=== PATIENT | female | born 1980 | race Hispanic/Latino ===

== ENCOUNTER 2021-03-17 20:46 | Inpatient (IN) | payer SELFPAY ==
[~2021-03-17] VITALS: Ht 162.6 cm; Wt 87.2 kg
[2021-03-17] MEDS ORDERED: ONDANSETRON 4MG INJ IVP ONE (21:15)
[2021-03-17] MEDS ORDERED: KETOROLAC 30MG VIAL (30MG/ML) IVP ONE (21:15)
[2021-03-17] MEDS ORDERED: NACL 0.9% 1000ML 1,000 ML IV ONE (21:15)
[2021-03-17 21:25] LABS: BASOPHILS % (AUTO) 0.5 % (0.0-5.0); EOSINOPHILS % (AUTO) 0.5 % (0.0-8.0); HEMATOCRIT 30.7 % (36-48); MEAN CORPUSCULAR HEMOGLOBIN 21.9 pg (27.0-33.0); MEAN CORPUSCULAR HGB CONC 28.7 g/dL (32.0-36.0); MEAN CORPUSCULAR VOLUME 76.4 fL (79-99); MONOCYTES % (AUTO) 6.1 % (3.0-13.0); NEUTROPHILS % (AUTO) 85.3 % (40.0-77.0); PLATELET COUNT (AUTO) 366 K/uL (130-400); RED BLOOD CELL COUNT(AUTO) 4.02 MIL/uL (4.00-5.50); RED CELL DISTRIBUTION WIDTH 17.7 % (11.0-15.5); WHITE BLOOD COUNT (AUTO) 11.4 K/uL (4.8-10.8)
[2021-03-17 21:42] LABS: CREATININE 0.8 mg/dL (0.5-1.5); POTASSIUM 3.8 mmol/L (3.5-5.1)
[2021-03-17 21:45] LABS: APPEARANCE,URINE Turbid (CLEAR); BILIRUBIN,URINE Negative (NEGATIVE); COLOR,URINE Yellow (YELLOW); GLUCOSE, URINE (UA) Negative (NEGATIVE); KETONES,URINE Negative (NEGATIVE); LEUKOCYTE ESTERASE ,URINE Large (NEGATIVE); NITRATE,URINE Positive (NEGATIVE); OCCULT BLOOD,URINE Nonhemolyzed Trace (NEGATIVE); PH,URINE 7.5 (5.0-8.0); PROTEIN,URINE Negative (NEGATIVE); UROBILINOGEN,URINE 0.2 mg/dL (0.2-1.0)
[2021-03-17 21:46] LABS: ALBUMIN 3.6 g/dL (3.5-5.0); BILIRUBIN,TOTAL 0.2 mg/dL (0.2-1.0); TOTAL PROTEIN, SERUM 7.5 g/dL (6.0-8.3)
[2021-03-17] MEDS ORDERED: CEFTRIAXONE 1G VIAL IVP STA (21:54)
[2021-03-17 21:57] LABS: AMORPHOUS SEDIMENT,UR Many /LPF (None Seen)
[2021-03-17 21:58] LABS: FINE GRANULAR CASTS,URINE 0-2 /LPF (None Seen)
[2021-03-17 21:59] LABS: BACTERIA,URINE Many /HPF (None Seen); MUCUS,URINE Rare LPF (None Seen); WBC,URINE 51-100 /HPF (0-1)
[2021-03-17] MEDS ORDERED: LACTULOSE 20 GM/30 ML UDCUP PO ONE (22:00)
[2021-03-17 22:01] LABS: HYALINE CASTS, URINE 0-1 /LPF (0-1 /LPF)
[2021-03-17] MEDS ORDERED: LISI10TA24 PO (22:42)
[2021-03-17 22:50] VITALS: BP 149/76
[2021-03-17] MEDS ORDERED: DIPHENHYDRAMINE HCL 25 MG CAPSULE PO PRN (23:45)
[2021-03-17] MEDS ORDERED: APAP-CODEINE 300/30MG TAB PO PRN (23:45)
[2021-03-17] MEDS ORDERED: HYDRALAZINE 20MG/ML VIAL IV PRN (23:45)
[2021-03-17] MEDS ORDERED: LACTULOSE 20 GM/30 ML UDCUP PO PRN (23:45)
[2021-03-17] MEDS ORDERED: MAG/ALUM/SIMETH 30 ML UDCUP PO PRN (23:45)
[2021-03-17] MEDS: CEFTRIAXONE 1G VIAL IV SCH (23:45)
[2021-03-17] MEDS ORDERED: ACETAMINOPHEN 325 MG TAB PO PRN (23:45)
[2021-03-17] MEDS ORDERED: NITROGLYCERIN 0.4 MG SL TAB SL PRN (23:45)
[2021-03-17] MEDS ORDERED: GUAIFENESIN-DM 200/20 MG 10 ML PO PRN (23:45)
[2021-03-18] VITALS (29 sets, daily range): BP systolic 124–166; BP diastolic 75–105
[2021-03-18] MEDS: NACL 0.9% 1000ML 1,000 ML IV SCH ×3 (00:53→21:03)
[2021-03-18 01:14] LABS: RETICULOCYTE % (AUTO) 1.61 % (0.42-2.23)
[2021-03-18] MEDS: MORPHINE 4 MG SYG IV PRN ×2 (01:57→08:29)
[2021-03-18] MEDS: ONDANSETRON 4MG INJ IV PRN ×2 (02:02→08:27)
[2021-03-18 03:25] LABS: % IRON SATURATION 2.9 % (22-44)
[2021-03-18] MEDS: FAMOTIDINE 20MG VIAL IV SCH ×2 (08:28→21:03)
[2021-03-18] MEDS: ENOXAPARIN SODIUM 40 MG/0.4 ML SYRINGE SQ SCH (08:31)
[2021-03-18] MEDS ORDERED: METOPROLOL TARTRATE 1 MG/ML 5ML VIAL IV PRN (11:00)
[2021-03-18] MEDS ORDERED: LIDOCAINE PF 100MG/5ML (2%) SYRINGE 5ML ONE (11:14)
[2021-03-18] MEDS ORDERED: ROCURONIUM 10MG/1ML SYR 10 MG/ML ML ONE (11:16)
[2021-03-18] MEDS ORDERED: MIDAZOLAM HCL 1 MG/ML 2ML VIAL ONE (11:16)
[2021-03-18] MEDS ORDERED: PROPOFOL 10 MG/ML 20ML VIAL IV ONE (11:16)
[2021-03-18] MEDS ORDERED: FENTANYL CITRATE PF 50 MCG/1 ML 2ML VIAL ONE (11:17)
[2021-03-18] MEDS ORDERED: ROPIVACAINE 0.5% 5MG/ML 30ML IJ ONE (11:19)
[2021-03-18] MEDS ORDERED: LIDOCAINE HCL 1% 20 ML VIAL ONE (11:34)
[2021-03-18] MEDS ORDERED: BUPIVACAINE/EPI/PF 0.5% 30ML VIAL IJ ONE (11:35)
[2021-03-18] MEDS ORDERED: LACTATED RINGERS 1000ML 1,000 ML IV ONE (11:42)
[2021-03-18] MEDS ORDERED: CEFAZOLIN SODIUM 1 GM VIAL ONE ×3 (11:45→12:48)
[2021-03-18] MEDS ORDERED: EPHEDRINE SULFATE 50 MG/ML AMPULE ONE (12:43)
[2021-03-18] MEDS ORDERED: ONDANSETRON 4MG INJ ONE (12:45)
[2021-03-18] MEDS ORDERED: MEPERIDINE-PF 25 MG/ML SYG ONE ×3 (12:58→13:46)
[2021-03-18] MEDS ORDERED: LISINOPRIL 10 MG TABLET PO SCH (18:00)
[2021-03-18] MEDS: OXYCODONE/ACETAMIN 5/325MG TAB PO PRN (19:13)
[2021-03-18] MEDS ORDERED: FLU VACC QS2020-21(6MOS UP)/PF 60 MCG/0.5 ML ML IM ONE (19:45)
[2021-03-18] MEDS: CEFTRIAXONE 1G VIAL IV SCH (23:52)
[2021-03-19 00:28] VITALS: BP 141/77
[2021-03-19 04:28] VITALS: BP 133/88
[2021-03-19] MEDS: OXYCODONE/ACETAMIN 5/325MG TAB PO PRN ×2 (04:28→11:00)
[2021-03-19] MEDS: NACL 0.9% 1000ML 1,000 ML IV SCH (05:45)
[2021-03-19 06:35] LABS: HEMATOCRIT 29.2 % (36-48); MEAN CORPUSCULAR HEMOGLOBIN 21.4 pg (27.0-33.0); MEAN CORPUSCULAR HGB CONC 28.4 g/dL (32.0-36.0); MEAN CORPUSCULAR VOLUME 75.5 fL (79-99); RED BLOOD CELL COUNT(AUTO) 3.87 MIL/uL (4.00-5.50); RETICULOCYTE % (AUTO) 1.77 % (0.42-2.23); WHITE BLOOD COUNT (AUTO) 11.5 K/uL (4.8-10.8)
[2021-03-19 06:51] LABS: % IRON SATURATION 9.7 % (22-44)
[2021-03-19] MEDS ORDERED: FLU VACC QS2020-21(6MOS UP)/PF 60 MCG/0.5 ML ML IM SCH (07:00)
[2021-03-19 07:15] LABS: CREATININE 0.7 mg/dL (0.5-1.5); POTASSIUM 3.6 mmol/L (3.5-5.1)
[2021-03-19 07:58] VITALS: BP 128/80
[2021-03-19] MEDS ORDERED: LISINOPRIL 10 MG TABLET PO SCH (09:00)
[2021-03-19] MEDS: ENOXAPARIN SODIUM 40 MG/0.4 ML SYRINGE SQ SCH (09:00)
[2021-03-19] MEDS ORDERED: POLY17PO4 PO (09:24)
[2021-03-19] MEDS ORDERED: TYL3B PO (09:24)
[2021-03-19] MEDS ORDERED: ONDA4TAB4 PO (09:24)
[2021-03-19] MEDS ORDERED: COMPOUND IV MISC 1 EACH IVSOLN MISC PRN (09:30)
[2021-03-19] MEDS ORDERED: CYANOCOBALAMIN (VITAMIN B-12) 1000 MCG/ML 1ML VIAL IM SCH (09:30)
[2021-03-19] MEDS ORDERED: CEFD300C3 PO (09:43)
[2021-03-19] MEDS ORDERED: IRON SUCROSE COMPLEX 300 MG in 0.9% NACL 50ML 50 ML IV SCH (09:45)
[2021-03-19] MEDS: FAMOTIDINE 20MG VIAL IV SCH (09:45)
[2021-03-19 11:42] VITALS: BP 131/82
[2021-03-19 16:00] VITALS: BP 140/93
== END 2021-03-19 17:45 | disposition home or self-care (01) | DRG 354 ==
LOC: EDH 20:46 → EDHIP 20:47 → OBSVTOIN 20:47 → 3DH 03-18 07:37 → 3CH 03-18 09:55
PROVIDERS: ADMIT Internal Medicine; ATTEND Internal Medicine
PROC: 0WUF0JZ Supplement Abdominal Wall with Synthetic Substitute, Open Approach (ICD-10-PCS; principal; 2021-03-18 12:10)
DX: K42.0 Umbilical hernia with obstruction, without gangrene (principal); N39.0 Urinary tract infection, site not specified; Z16.24 Resistance to multiple antibiotics; I10 Essential (primary) hypertension; E66.9 Obesity, unspecified; D64.9 Anemia, unspecified; B96.20 Unspecified Escherichia coli [E. coli] as the cause of diseases classified elsewhere; K57.90 Diverticulosis of intestine, part unspecified, without perforation or abscess without bleeding; Z68.33 Body mass index [BMI] 33.0-33.9, adult; Z98.51 Tubal ligation status; Z90.49 Acquired absence of other specified parts of digestive tract
CPT/HCPCS: 36415; 74176; 80048; 80053; 81001; 82607; 82728; 82746; 83540; 83550; 83690; 84484; 85025; 85027; 85045; 87077; 87088; 87186; 93005; C1781; G0378; J0360; J0690; J0696; J1650; J1756; J1885; J2001; J2175; J2250; J2270; J2405; J2704; J2795; J3010; J3420; J3490; J7030; J7120; Q2035